=== PATIENT | male | born 1990 | race Caucasian/White ===

== ENCOUNTER 2019-09-28 10:04 | Emergency (ER) | payer MEDICAID ==
--- NOTE | 2019-09-28 11:38 | ED Physician Documentation ---
PD HPI BACK INJURY - Stated complaint Stated Complaint: BACK PX - History obtained from History obtained from: Patient - History of Present Illness Location: Both, Lower Type of injury: Fall (he was playing football 6 days ago and jumped up to catch a ball and landed firmly flat on feet, with feeling of pain in lower back abruptly that has continued. Worse with ROM; better resting.) Timing - onset: How many days ago (6) Timing - duration: Days (6) Timing - details: Abrupt onset, Still present, Waxing and waning Quality: Pain (lumbar area to right more, goes up back. No pain to LEs and no LE paresis/paresthesias.), Spasm, Aching Improved by: Rest Worsened by: Moving Associated symptoms: No: Fever, Weakness, Numbness, Incontinent of urine Contributing factors: Other (no IVDU). No: Prior back surgery Similar symptoms before: Has not had sx before Review of Systems Constitutional: denies: Fever, Chills Nose: denies: Rhinorrhea / runny nose, Congestion Throat: denies: Sore throat Respiratory: denies: Cough GI: denies: Nausea, Vomiting, Diarrhea : denies: Incontinent Neurologic: denies: Focal weakness, Numbness PD PAST MEDICAL HISTORY - Past Medical History Past Medical History: No - Past Surgical History Past Surgical History: No - Present Medications Home Medications: Ambulatory Orders Medication Instructions Recorded Confirmed Benzonatate [Tessalon] 100 mg PO Q8H PRN #20 capsule 10/10/13 predniSONE [Deltasone] 60 mg PO DAILY 5 Days tablet 10/10/13 Hydrocodone/Acetaminophen [[place] 1 each PO Q6H PRN #15 tablet 09/28/19 5-325 Tablet] Ibuprofen [Motrin] 600 mg PO TID PRN #25 tab 09/28/19 Tizanidine HCl 4 mg PO TID PRN #25 capsule 09/28/19 dexAMETHasone [Decadron] 4 mg PO DAILY #5 tablet 09/28/19 - Allergies Allergies/Adverse Reactions: Allergies Allergy/AdvReac Type Severity Reaction Status Date / Time No Known Drug Allergies Allergy Verified 09/28/19 10:10 - Social History Does the pt smoke?: Yes Smoking Status: Current every day smoker Does the pt drink ETOH?: Yes ETOH Use: Other (alcoholism, and just got out of alcohol rehab program; denies narcotic addiction/IVDU) Does the pt have substance abuse?: No - Immunizations Immunizations are current?: Yes - POLST Patient has POLST: No PD ED PE NORMAL - Vitals Vital signs reviewed: Yes - General General: Alert and oriented X 3, Well developed/nourished - HEENT HEENT: Pharynx benign - Neck Neck: Supple, no meningeal sign, No bony TTP - Cardiac Cardiac: RRR, No murmur - Respiratory Respiratory: Clear bilaterally - Abdomen Abdomen: Soft, Non tender - Back Back: No CVA TTP, Other (He is tender in the mid to right lumbar area predomi nantly in the muscle. There is some slight tenderness to percussion over the mid lumbar area. There is no rash nor sores. Lower extremities show normal sensation and movement and normal knee reflexes.) - Derm Derm: Normal color, Warm and dry, No rash - Extremities Extremities: Normal ROM s pain, No edema, No calf tenderness / cord - Neuro Neuro: Alert and oriented X 3, No motor deficit, No sensory deficit, Normal speech Results - Vitals Vitals: Vital Signs - 24 hr 09/28/19 09/28/19 10:06 12:52 Temperature 36.6 C Heart Rate 78 91 Respiratory 17 16 Rate Blood Pressure 165/93 H 152/63 H O2 Saturation 98 100 Oxygen O2 Source Room air - Rads (name of study) lumbar xray Radiology: Prelim report reviewed, See rad report (no fracture) PD MEDICAL DECISION MAKING - ED course Complexity details: considered differential (29-year-old with the onset of low back pain after landing firmly on his feet from a jump while playing football. He did not have a direct fall or impact to the back but had an onset of pain in the lumbar area that radiates up to the lower thoracic area. No pain down the legs. His x-ray appears normal. We will treat with NSAIDs muscle relaxants and some pain medicine. He states he has had alcoholism problems in the past and had been in a rehab program. He denies any narcotic addiction or problems.) Departure - Departure Disposition: 01 Home, Self Care Clinical Impression: Acute lumbar myofascial strain Qualifiers: Encounter type: initial encounter Qualified Code(s): S39.012A - Strain of muscle, fascia and tendon of lower back, initial encounter Condition: Stable Record reviewed to determine appropriate education?: Yes Instructions: ED Sprain Strain Lumbar Prescriptions: dexAMETHasone [Decadron] 4 mg PO DAILY #5 tablet Hydrocodone/Acetaminophen [[place] 5-325 Tablet] 1 each PO Q6H PRN #15 tablet PRN Reason: Pain Ibuprofen [Motrin] 600 mg PO TID PRN #25 tab PRN Reason: Pain Tizanidine HCl 4 mg PO TID PRN #25 capsule PRN Reason: Spasms Comments: Your x-ray appears normal. Presume this is predominantly muscular and ligaments and will improve with heat stretching and time. Can treated also with anti- inflammatories of ibuprofen and Decadron and muscle relaxant tizanidine. Add Tylenol or hydrocodone if needed for pain over the short-term. I would anticipate improvement over several days to week. Discharge Date/Time: 09/28/19 12:54
[2019-09-28] MEDS ORDERED: DEXAMETHASONE 10 MG/ML VIAL PO STA (12:02)
[2019-09-28] MEDS ORDERED: CHERRY SYRUP 10 ML UDC PO ONE (12:02)
[2019-09-28] MEDS ORDERED: NAPROXEN 250 MG TABLET PO STA (12:02)
[2019-09-28] MEDS ORDERED: oxyCODONE 5 MG TABLET PO STA (12:02)
[2019-09-28] MEDS ORDERED: METHOCARBAMOL 500 MG TABLET PO STA (12:02)
[2019-09-28 12:53] VITALS: BP 152/63
--- NOTE | 2019-09-28 12:54 | XRAY Report ---
Reason: low back pain after landing playing football Procedure Date: 09/28/2019 Accession Number: [id number] / [id number] Procedure: XR - Lumbar Spine 2 View CPT Code: Final Report FULL RESULT: EXAM: LUMBOSACRAL SPINE RADIOGRAPHY EXAM DATE: 09/28/2019 12:27 PM. CLINICAL HISTORY: Low back pain after landing playing football. COMPARISONS: None. TECHNIQUE: 2 views. FINDINGS: Alignment: Normal. No spondylolisthesis or scoliosis. Bones: Five [id number] lumbar vertebral bodies are present. No fractures or bone lesions. Disks: Normal. Disk heights are maintained. Facets: No degenerative changes. Sacroiliac Joints: Unremarkable. Soft Tissues: Normal. The visualized bowel gas pattern is normal. IMPRESSION: Normal lumbar spine radiography. [facility]
== END 2019-09-28 12:54 | disposition home or self-care (01) ==
LOC: ED 10:04
DX: S39.012A Strain of muscle, fascia and tendon of lower back, initial encounter (principal); X50.9XXA Other and unspecified overexertion or strenuous movements or postures, initial encounter; Y93.61 Activity, american tackle football; F17.200 Nicotine dependence, unspecified, uncomplicated
CPT/HCPCS: 72100; 99284; A9270